=== PATIENT | male | born 1980 | race Caucasian/White ===

== ENCOUNTER 2017-07-05 10:50 | Emergency (ER) | payer OTHER ==
[~2017-07-05] VITALS: Ht 193 cm; Wt 113.6 kg
[~2017-07-05 10:50] MED LIST: FLEXERIL10 MG PO; MOTRIN800 MG PO
[2017-07-05] MEDS ORDERED: LIDODERM 5% P1 PATCH TD (11:08)
[2017-07-05] MEDS ORDERED: FLEXERIL10 MG PO (11:08)
[2017-07-05] MEDS ORDERED: MOTRIN800 MG PO (11:08)
[2017-07-05 11:28] VITALS: BP 131/89
== END 2017-07-05 11:34 | disposition home or self-care (01) ==
LOC: EME 10:50
DX: S39.012A Strain of muscle, fascia and tendon of lower back, initial encounter (principal); X50.0XXA Overexertion from strenuous movement or load, initial encounter; Y93.89 Activity, other specified; Y99.0 Civilian activity done for income or pay; Z88.0 Allergy status to penicillin
CPT/HCPCS: 99281; 99283